=== PATIENT | female | born 1950 | race Caucasian/White ===

== ENCOUNTER 2017-01-11 21:20 | Inpatient (IN) | payer MEDICAID, OTHER ==
[~2017-01-11] VITALS: Ht 152.4 cm; Wt 57.6 kg
[~2017-01-11 21:20] MED LIST: ASPI-1035 PO; ATOR20TA65 PO; CARV6.2548 PO; DILT240C92 PO; DOCU-150 PO
[2017-01-11] MEDS ORDERED: ONDANSETRON HCL 4MG/2ML VIAL IV STA (23:03)
[2017-01-11] MEDS ORDERED: MORPHINE SULFATE 4 MG/ML CPJ (NOT FOR IM USE) IV STA (23:03)
[2017-01-11] MEDS ORDERED: SODIUM CHLORIDE 0.9% 1,000 ML IV ONE (23:03)
[2017-01-11 23:31] LABS: BASOPHILS % 0.7 % (0.0-2.0); EOSINOPHILS % 1.3 % (0.0-5.0); HEMATOCRIT. 25.6 % (36.0-48.0); HEMOGLOBIN. 8.9 g/dL (12.0-16.0); LYMPHOCYTES % 15.8 % (20.0-50.0); MEAN CORPUSCULAR HEMOGLOBIN 32.3 pg (28.0-32.0); MEAN CORPUSCULAR VOLUME 92.5 fL (81.0-99.0); MEAN PLATELET VOLUME 9.9 fl (7.4-10.4); MONOCYTES % 0.9 % (2.0-8.0); NEUTROPHILS % 81.3 % (40.0-76.0); PLATELET 60 x1000/uL (130-400); RED BLOOD CELL COUNT 2.77 mill/uL (4.2-5.4); RED CELL DISTRIBUTION WIDTH 13.9 % (11.6-14.6)
[2017-01-11 23:36] LABS: INR 1.1; PARTIAL THROMBOPLASTIN TIME 29.7 sec (24.0-34.0)
[2017-01-11 23:44] LABS: CARBON DIOXIDE 17 mEq/L (21-32); CHLORIDE 112 mEq/L (98-107); TROPONIN I < 0.02 ng/mL (0.00-0.04)
[2017-01-12] VITALS (9 sets, daily range): BP systolic 117–153; BP diastolic 53–84
[2017-01-12] MEDS ORDERED: DIPHENHYDRAMINE 50MG/ML VIAL IV ONE (00:15)
[2017-01-12] MEDS ORDERED: CARVEDILOL 6.25 MG TABLET PO SCH (09:00)
[2017-01-12] MEDS ORDERED: DILTIAZEM HCL 180MG CAPSULE CD 24HR PO SCH (09:00)
[2017-01-12] MEDS: DOCUSATE SODIUM 100MG CAPSULE PO SCH (09:54)
[2017-01-12] MEDS: SODIUM CHLORIDE 0.45% 1,000 ML IV SCH (12:36)
[2017-01-12] MEDS ORDERED: DEXTROSE 50% WATER 50ML SYRINGE IV PRN (13:30)
[2017-01-12] MEDS ORDERED: METRONIDAZOLE 500MG TABLET PO SCH (14:00)
[2017-01-12] MEDS: METRONIDAZOLE 250MG TABLET PO SCH ×2 (14:17→22:16)
[2017-01-12] MEDS: PANTOPRAZOLE SODIUM 40 MG/VIAL IV SCH (14:17)
[2017-01-12] MEDS ORDERED: LEVOFLOXACIN 500MG PREMIX 100 ML IV SCH (15:00)
[2017-01-12 15:14] LABS: CREATINE KINASE 44 IU/L (26-192); CREATINE KINASE MB FRACTION 3.1 ng/mL (0.5-3.6); TROPONIN I < 0.02 ng/mL (0.00-0.04)
[2017-01-12 16:48] LABS: CLARITY URINE CLEAR (CLEAR); COLOR URINE YELLOW (YELLOW); GLUCOSE URINE NEGATIVE (NEGATIVE); KETONES URINE NEGATIVE (NEGATIVE); LEUKOCYTE ESTERASE URINE TRACE (NEGATIVE); NITRITE URINE NEGATIVE (NEGATIVE); OCCULT BLOOD URINE 2+ (NEGATIVE); PROTEIN URINE 2+ (NEGATIVE); SPECIFIC GRAVITY URINE 1.015 (1.005-1.030); UROBILINOGEN URINE 0.2 E.U./dL (0.2-1.0)
[2017-01-12 17:04] LABS: *AMPHETAMINES SCREEN URINE NEGATIVE (NEGATIVE); *BARBITURATES SCREEN URINE NEGATIVE (NEGATIVE); *BENZODIAZEPINES SCREEN URINE NEGATIVE (NEGATIVE); *COCAINE SCREEN URINE NEGATIVE (NEGATIVE); CANNABINOID URINE SCREEN NEGATIVE (NEGATIVE); OPIATES URINE SCREEN PRESUMTIVE POSITIVE (NEGATIVE); PHENCYCLIDINE URINE SCREEN NEGATIVE (NEGATIVE)
[2017-01-12 17:05] LABS: CREATININE URINE RANDOM 65.2 mg/dL
[2017-01-12 17:09] LABS: METHADONE URINE SCREEN PRESUMTIVE POSITIVE (NEGATIVE)
[2017-01-12] MEDS: BLOOD SUGAR DIAGNOSTIC STRIP TEST SCH ×2 (17:30→21:30)
[2017-01-12] MEDS: INSULIN LISPRO 100 UNITS/ML SUBCUT SCH ×2 (18:00→21:00)
[2017-01-12 18:01] LABS: HEMOGLOBIN 8.6 g/dL (12.0-16.0)
[2017-01-12] MEDS ORDERED: ACETAMINOPHEN 650MG/20.3ML UDC PO PRN (19:45)
[2017-01-12] MEDS: ATORVASTATIN CALCIUM 20MG TABLET PO SCH (20:14)
[2017-01-13] VITALS (17 sets, daily range): BP systolic 127–173; BP diastolic 55–96
[2017-01-13 00:33] LABS: HEMATOCRIT 24.3 % (36.0-48.0); HEMOGLOBIN 8.2 g/dL (12.0-16.0)
[2017-01-13 00:33] LABS: CREATINE KINASE 38 IU/L (26-192); CREATINE KINASE MB FRACTION 2.1 ng/mL (0.5-3.6); TROPONIN I < 0.02 ng/mL (0.00-0.04)
[2017-01-13] MEDS: SODIUM CHLORIDE 0.45% 1,000 ML IV SCH ×2 (02:21→14:55)
[2017-01-13] MEDS: METRONIDAZOLE 250MG TABLET PO SCH ×3 (06:28→21:26)
[2017-01-13 07:11] LABS: BASOPHILS % 0.4 % (0.0-2.0); EOSINOPHILS % 1.7 % (0.0-5.0); HEMATOCRIT. 23.2 % (36.0-48.0); HEMOGLOBIN. 7.8 g/dL (12.0-16.0); LYMPHOCYTES % 19.5 % (20.0-50.0); MEAN CORPUSCULAR HEMOGLOBIN 31.4 pg (28.0-32.0); MEAN CORPUSCULAR VOLUME 92.7 fL (81.0-99.0); MEAN PLATELET VOLUME 10.1 fl (7.4-10.4); MONOCYTES % 8.1 % (2.0-8.0); NEUTROPHILS % 70.3 % (40.0-76.0); PLATELET 63 x1000/uL (130-400); RED CELL DISTRIBUTION WIDTH 13.8 % (11.6-14.6)
[2017-01-13 07:30] LABS: CARBON DIOXIDE 17 mEq/L (21-32); CHLORIDE 111 mEq/L (98-107); CREATINE KINASE 33 IU/L (26-192); CREATINE KINASE MB FRACTION 1.9 ng/mL (0.5-3.6); PHOSPHORUS 4.3 mg/dL (2.5-4.9); TROPONIN I < 0.02 ng/mL (0.00-0.04)
[2017-01-13] MEDS: BLOOD SUGAR DIAGNOSTIC STRIP TEST SCH ×4 (07:55→21:27)
[2017-01-13] MEDS: INSULIN LISPRO 100 UNITS/ML SUBCUT SCH ×4 (07:55→21:00)
[2017-01-13] MEDS: PANTOPRAZOLE SODIUM 40 MG/VIAL IV SCH (11:25)
[2017-01-13] MEDS: DOCUSATE SODIUM 100MG CAPSULE PO SCH (11:26)
[2017-01-13] MEDS: METHADONE HCL 10MG TABLET PO SCH (11:27)
[2017-01-13] MEDS: ONDANSETRON HCL 4MG/2ML VIAL IV PRN (17:08)
[2017-01-13] MEDS: ENALAPRIL 2.5MG/2ML VIAL 2ML IV PRN ×2 (17:08→23:07)
[2017-01-13] MEDS: ATORVASTATIN CALCIUM 20MG TABLET PO SCH (21:26)
[2017-01-14] VITALS (13 sets, daily range): BP systolic 100–202; BP diastolic 52–91
[2017-01-14] MEDS: ONDANSETRON HCL 4MG/2ML VIAL IV PRN ×2 (02:24→08:21)
[2017-01-14] MEDS: SODIUM CHLORIDE 0.45% 1,000 ML IV SCH (02:25)
[2017-01-14] MEDS: METRONIDAZOLE 250MG TABLET PO SCH ×3 (06:14→22:23)
[2017-01-14 06:43] LABS: BASOPHILS % 0.4 % (0.0-2.0); EOSINOPHILS % 1.7 % (0.0-5.0); HEMATOCRIT. 29.2 % (36.0-48.0); HEMOGLOBIN. 10.1 g/dL (12.0-16.0); LYMPHOCYTES % 20.3 % (20.0-50.0); MEAN CORPUSCULAR VOLUME 89.6 fL (81.0-99.0); MEAN PLATELET VOLUME 10.2 fl (7.4-10.4); MONOCYTES % 9.1 % (2.0-8.0); NEUTROPHILS % 68.5 % (40.0-76.0); PLATELET 59 x1000/uL (130-400); RED BLOOD CELL COUNT 3.26 mill/uL (4.2-5.4); RED CELL DISTRIBUTION WIDTH 14.8 % (11.6-14.6)
[2017-01-14 07:29] LABS: CARBON DIOXIDE 18 mEq/L (21-32); CHLORIDE 113 mEq/L (98-107); PHOSPHORUS 3.5 mg/dL (2.5-4.9)
[2017-01-14] MEDS: BLOOD SUGAR DIAGNOSTIC STRIP TEST SCH ×4 (07:30→20:51)
[2017-01-14] MEDS: INSULIN LISPRO 100 UNITS/ML SUBCUT SCH ×4 (08:00→21:00)
[2017-01-14] MEDS: ENALAPRIL 2.5MG/2ML VIAL 2ML IV PRN (08:08)
[2017-01-14] MEDS: PANTOPRAZOLE SODIUM 40 MG/VIAL IV SCH (08:21)
[2017-01-14] MEDS: DOCUSATE SODIUM 100MG CAPSULE PO SCH (08:22)
[2017-01-14] MEDS: METHADONE HCL 10MG TABLET PO SCH (08:24)
[2017-01-14] MEDS ORDERED: DILTIAZEM HCL 180MG CAPSULE CD 24HR PO SCH (09:15)
[2017-01-14] MEDS: CARVEDILOL 6.25 MG TABLET PO SCH ×2 (09:38→20:50)
[2017-01-14] MEDS ORDERED: METOCLOPRAMIDE HCL 10MG/2ML VIAL IV NR (09:45)
[2017-01-14] MEDS: METOCLOPRAMIDE HCL 10MG/2ML VIAL IV SCH ×3 (12:53→23:16)
[2017-01-14] MEDS: DEXT 5%/0.45% NACL 1000ML 1,000 ML IV SCH ×2 (12:55)
[2017-01-14] MEDS: DILTIAZEM HCL 60MG TABLET PO SCH ×2 (16:51→21:19)
[2017-01-14] MEDS: LEVOFLOXACIN 250MG PREMIX 50 ML IV SCH (16:51)
[2017-01-14] MEDS: ATORVASTATIN CALCIUM 20MG TABLET PO SCH (21:00)
[2017-01-15] VITALS (12 sets, daily range): BP systolic 99–151; BP diastolic 47–66
[2017-01-15] MEDS: DEXT 5%/0.45% NACL 1000ML 1,000 ML IV SCH ×4 (03:03→15:01)
[2017-01-15] MEDS: METRONIDAZOLE 250MG TABLET PO SCH ×3 (05:47→21:37)
[2017-01-15] MEDS: METOCLOPRAMIDE HCL 10MG/2ML VIAL IV SCH ×4 (05:47→23:34)
[2017-01-15] MEDS: DILTIAZEM HCL 60MG TABLET PO SCH ×3 (05:47→21:39)
[2017-01-15 06:21] LABS: BASOPHILS % 0.5 % (0.0-2.0); EOSINOPHILS % 2.1 % (0.0-5.0); HEMATOCRIT. 27.4 % (36.0-48.0); HEMOGLOBIN. 9.4 g/dL (12.0-16.0); LYMPHOCYTES % 20.7 % (20.0-50.0); MEAN CORPUSCULAR VOLUME 90.1 fL (81.0-99.0); MEAN PLATELET VOLUME 10.2 fl (7.4-10.4); MONOCYTES % 10.3 % (2.0-8.0); NEUTROPHILS % 66.4 % (40.0-76.0); PLATELET 62 x1000/uL (130-400); RED BLOOD CELL COUNT 3.04 mill/uL (4.2-5.4); RED CELL DISTRIBUTION WIDTH 14.3 % (11.6-14.6)
[2017-01-15 07:08] LABS: CARBON DIOXIDE 17 mEq/L (21-32); CHLORIDE 111 mEq/L (98-107)
[2017-01-15] MEDS: INSULIN LISPRO 100 UNITS/ML SUBCUT SCH ×5 (08:00→21:38)
[2017-01-15] MEDS: BLOOD SUGAR DIAGNOSTIC STRIP TEST SCH ×4 (08:28→21:38)
[2017-01-15] MEDS: PANTOPRAZOLE SODIUM 40 MG/VIAL IV SCH (08:40)
[2017-01-15] MEDS: METHADONE HCL 10MG TABLET PO SCH (08:40)
[2017-01-15] MEDS: CARVEDILOL 6.25 MG TABLET PO SCH ×2 (08:41→21:00)
[2017-01-15] MEDS: DOCUSATE SODIUM 100MG CAPSULE PO SCH (08:41)
[2017-01-15 10:09] LABS: BG BASE EXCESS -9.5 mmol/L (-2.0-2.0); BG CARBOXYHEMOGLOBIN 0.3 % (0.5-1.5); BG DEOXYHEMOGLOBIN 2.6 % (0.0-5.0); BG FRACTION INSPIRED OXYGEN 21; BG HCO3 ACT 15.2 mmol/L (22.0-26.0); BG METHEMOGLOBIN 0.1 % (0.0-1.5); BG OXYGEN SATURATION 97.4 % (92.0-98.5); BG PH 7.336 (7.350-7.450); BG PO2 107.7 mmHg (75.0-100.0); BG SAMPLE SITE RIGHT RADIAL; BG VENT MODE ROOM AIR
[2017-01-15] MEDS ORDERED: SENNOSIDES/DOCUSATE SOD 8.6/50MG TABLET PO NR (11:01)
[2017-01-15] MEDS: ONDANSETRON HCL 4MG/2ML VIAL IV PRN (12:08)
[2017-01-15] MEDS ORDERED: SENNOSIDES/DOCUSATE SOD 8.6/50MG TABLET PO PRN (21:00)
[2017-01-15] MEDS: ATORVASTATIN CALCIUM 20MG TABLET PO SCH (21:37)
[2017-01-15 21:46] LABS: CLARITY URINE CLOUDY (CLEAR); COLOR URINE YELLOW (YELLOW); GLUCOSE URINE NEGATIVE (NEGATIVE); KETONES URINE NEGATIVE (NEGATIVE); LEUKOCYTE ESTERASE URINE 2+ (NEGATIVE); NITRITE URINE NEGATIVE (NEGATIVE); OCCULT BLOOD URINE TRACE (NEGATIVE); PROTEIN URINE 2+ (NEGATIVE); SPECIFIC GRAVITY URINE 1.014 (1.005-1.030); UROBILINOGEN URINE 0.2 E.U./dL (0.2-1.0)
[2017-01-15 21:57] LABS: CREATININE URINE RANDOM 59.3 mg/dL
[2017-01-16] VITALS (17 sets, daily range): BP systolic 96–159; BP diastolic 48–77
[2017-01-16] MEDS: DEXT 5%/0.45% NACL 1000ML 1,000 ML IV SCH ×2 (03:30)
[2017-01-16] MEDS: METOCLOPRAMIDE HCL 10MG/2ML VIAL IV SCH ×4 (05:10→23:47)
[2017-01-16] MEDS: METRONIDAZOLE 250MG TABLET PO SCH ×3 (05:10→21:24)
[2017-01-16] MEDS: DILTIAZEM HCL 60MG TABLET PO SCH ×3 (05:10→21:24)
[2017-01-16 06:39] LABS: BASOPHILS % 0.4 % (0.0-2.0); EOSINOPHILS % 2.3 % (0.0-5.0); HEMATOCRIT. 27.7 % (36.0-48.0); HEMOGLOBIN. 9.4 g/dL (12.0-16.0); LYMPHOCYTES % 28.8 % (20.0-50.0); MEAN CORPUSCULAR HEMOGLOBIN 30.8 pg (28.0-32.0); MEAN CORPUSCULAR VOLUME 90.5 fL (81.0-99.0); MEAN PLATELET VOLUME 10.4 fl (7.4-10.4); MONOCYTES % 12.9 % (2.0-8.0); NEUTROPHILS % 55.6 % (40.0-76.0); PLATELET 72 x1000/uL (130-400); RED BLOOD CELL COUNT 3.06 mill/uL (4.2-5.4); RED CELL DISTRIBUTION WIDTH 14.5 % (11.6-14.6)
[2017-01-16 07:10] LABS: CHLORIDE 112 mEq/L (98-107)
[2017-01-16] MEDS: BLOOD SUGAR DIAGNOSTIC STRIP TEST SCH ×4 (07:30→21:15)
[2017-01-16 07:45] LABS: CARBON DIOXIDE 15 mEq/L (21-32)
[2017-01-16] MEDS: INSULIN LISPRO 100 UNITS/ML SUBCUT SCH ×4 (08:00→21:00)
[2017-01-16] MEDS: PANTOPRAZOLE SODIUM 40 MG/VIAL IV SCH (08:11)
[2017-01-16] MEDS: DOCUSATE SODIUM 100MG CAPSULE PO SCH (08:13)
[2017-01-16] MEDS: METHADONE HCL 10MG TABLET PO SCH (08:13)
[2017-01-16] MEDS: CARVEDILOL 6.25 MG TABLET PO SCH ×2 (08:14→21:24)
[2017-01-16] MEDS: ONDANSETRON HCL 4MG/2ML VIAL IV PRN ×2 (08:20→21:31)
[2017-01-16] MEDS: SODIUM BICARBONATE 100 MEQ in DEXTROSE 5% WATER 1,000 ML IV SCH (14:18)
[2017-01-16] MEDS: LEVOFLOXACIN 250MG PREMIX 50 ML IV SCH (15:34)
[2017-01-16] MEDS: ATORVASTATIN CALCIUM 20MG TABLET PO SCH (21:23)
[2017-01-17] VITALS (10 sets, daily range): BP systolic 119–164; BP diastolic 60–77
[2017-01-17] MEDS: DILTIAZEM HCL 60MG TABLET PO SCH ×3 (05:07→22:57)
[2017-01-17] MEDS: METRONIDAZOLE 250MG TABLET PO SCH ×3 (05:07→22:56)
[2017-01-17] MEDS: SODIUM BICARBONATE 100 MEQ in DEXTROSE 5% WATER 1,000 ML IV SCH ×2 (05:07→18:23)
[2017-01-17] MEDS: METOCLOPRAMIDE HCL 10MG/2ML VIAL IV SCH ×4 (05:07→22:58)
[2017-01-17] MEDS: ONDANSETRON HCL 4MG/2ML VIAL IV PRN (05:12)
[2017-01-17 07:51] LABS: BASOPHILS % 0.6 % (0.0-2.0); EOSINOPHILS % 2.4 % (0.0-5.0); HEMATOCRIT. 26.5 % (36.0-48.0); HEMOGLOBIN. 9.3 g/dL (12.0-16.0); MEAN CORPUSCULAR HEMOGLOBIN 31.3 pg (28.0-32.0); MEAN CORPUSCULAR VOLUME 89.5 fL (81.0-99.0); MEAN PLATELET VOLUME 9.4 fl (7.4-10.4); MONOCYTES % 11.5 % (2.0-8.0); NEUTROPHILS % 61.5 % (40.0-76.0); PLATELET 76 x1000/uL (130-400); RED BLOOD CELL COUNT 2.97 mill/uL (4.2-5.4); RED CELL DISTRIBUTION WIDTH 14.4 % (11.6-14.6)
[2017-01-17] MEDS: INSULIN LISPRO 100 UNITS/ML SUBCUT SCH ×4 (08:00→21:00)
[2017-01-17] MEDS: BLOOD SUGAR DIAGNOSTIC STRIP TEST SCH ×4 (08:02→21:00)
[2017-01-17] MEDS: PANTOPRAZOLE SODIUM 40 MG/VIAL IV SCH (08:09)
[2017-01-17 08:19] LABS: CARBON DIOXIDE 19 mEq/L (21-32); CHLORIDE 108 mEq/L (98-107); PHOSPHORUS 3.1 mg/dL (2.5-4.9)
[2017-01-17] MEDS: CARVEDILOL 6.25 MG TABLET PO SCH ×2 (08:35→22:56)
[2017-01-17] MEDS: DOCUSATE SODIUM 100MG CAPSULE PO SCH (08:35)
[2017-01-17] MEDS: METHADONE HCL 10MG TABLET PO SCH (08:36)
[2017-01-17] MEDS ORDERED: CALCITRIOL 0.25MCG CAPSULE PO SCH (12:45)
[2017-01-17] MEDS: CALCITRIOL 1MCG/ML AMP IV SCH (14:10)
[2017-01-17] MEDS ORDERED: ENALAPRIL 2.5MG/2ML VIAL 2ML IV PRN (18:04)
[2017-01-17] MEDS: ATORVASTATIN CALCIUM 20MG TABLET PO SCH (22:56)
[2017-01-18] VITALS: BP 168/83
[2017-01-18 02:00] VITALS: BP 121/66
[2017-01-18] MEDS: ONDANSETRON HCL 4MG/2ML VIAL IV PRN (03:41)
[2017-01-18 04:00] VITALS: BP 150/77
[2017-01-18] MEDS: METOCLOPRAMIDE HCL 10MG/2ML VIAL IV SCH (06:31)
[2017-01-18] MEDS: METRONIDAZOLE 250MG TABLET PO SCH (06:31)
[2017-01-18] MEDS: DILTIAZEM HCL 60MG TABLET PO SCH (06:31)
[2017-01-18 07:19] LABS: BASOPHILS % 0.4 % (0.0-2.0); EOSINOPHILS % 2.9 % (0.0-5.0); HEMATOCRIT. 27.9 % (36.0-48.0); HEMOGLOBIN. 9.5 g/dL (12.0-16.0); LYMPHOCYTES % 23.2 % (20.0-50.0); MEAN CORPUSCULAR HEMOGLOBIN 30.7 pg (28.0-32.0); MEAN CORPUSCULAR VOLUME 89.7 fL (81.0-99.0); MEAN PLATELET VOLUME 9.5 fl (7.4-10.4); MONOCYTES % 10.5 % (2.0-8.0); PLATELET 85 x1000/uL (130-400); RED BLOOD CELL COUNT 3.11 mill/uL (4.2-5.4); RED CELL DISTRIBUTION WIDTH 14.3 % (11.6-14.6)
[2017-01-18 07:31] LABS: PHOSPHORUS 2.9 mg/dL (2.5-4.9)
[2017-01-18 08:00] VITALS: BP 145/70
[2017-01-18] MEDS: INSULIN LISPRO 100 UNITS/ML SUBCUT SCH (08:00)
[2017-01-18] MEDS: BLOOD SUGAR DIAGNOSTIC STRIP TEST SCH (08:04)
[2017-01-18] MEDS: CALCITRIOL 1MCG/ML AMP IV SCH (08:06)
[2017-01-18] MEDS: PANTOPRAZOLE SODIUM 40 MG/VIAL IV SCH (08:06)
[2017-01-18] MEDS: METHADONE HCL 10MG TABLET PO SCH (08:07)
[2017-01-18] MEDS: DOCUSATE SODIUM 100MG CAPSULE PO SCH (08:07)
[2017-01-18] MEDS: CARVEDILOL 6.25 MG TABLET PO SCH (08:08)
[2017-01-18] MEDS ORDERED: METO-293 PO (09:54)
[2017-01-18] MEDS: SODIUM BICARBONATE 100 MEQ in DEXTROSE 5% WATER 1,000 ML IV SCH (10:15)
[2017-01-18 10:51] VITALS: BP 145/80
[2017-01-18] MEDS ORDERED: LEVOFLOXACIN 250MG TABLET PO SCH (11:00)
[2017-01-22 19:12] LABS: 25-HYDROXY VITAMIN D3 5.8 ng/mL (.)
== END 2017-01-18 15:00 | disposition home or self-care (01) | DRG 45 ==
LOC: ER 21:20 → 5EST 01-12 02:22 → 8WST 01-14 18:37 → 5EST 01-14 22:08
PROVIDERS: ADMIT Internal Medicine; ATTEND Internal Medicine
PROC: 30233N1 Transfusion of Nonautologous Red Blood Cells into Peripheral Vein, Percutaneous Approach (ICD-10-PCS; principal; 2017-01-13)
DX: I63.9 Cerebral infarction, unspecified (principal); N17.9 Acute kidney failure, unspecified; E87.2 Acidosis; K85.90 Acute pancreatitis without necrosis or infection, unspecified; E46 Unspecified protein-calorie malnutrition; N18.4 Chronic kidney disease, stage 4 (severe); D69.6 Thrombocytopenia, unspecified; E11.22 Type 2 diabetes mellitus with diabetic chronic kidney disease; I27.2 Other secondary pulmonary hypertension; E87.5 Hyperkalemia; K80.70 Calculus of gallbladder and bile duct without cholecystitis without obstruction; R74.0 Nonspecific elevation of levels of transaminase and lactic acid dehydrogenase [LDH]; D64.9 Anemia, unspecified; K52.9 Noninfective gastroenteritis and colitis, unspecified; B19.20 Unspecified viral hepatitis C without hepatic coma; E78.00 Pure hypercholesterolemia, unspecified; E78.5 Hyperlipidemia, unspecified; F11.23 Opioid dependence with withdrawal; F17.210 Nicotine dependence, cigarettes, uncomplicated; I07.1 Rheumatic tricuspid insufficiency; I12.9 Hypertensive chronic kidney disease with stage 1 through stage 4 chronic kidney disease, or unspecified chronic kidney disease; I44.0 Atrioventricular block, first degree; M47.9 Spondylosis, unspecified; I45.81 Long QT syndrome; N28.1 Cyst of kidney, acquired; I95.9 Hypotension, unspecified; K92.2 Gastrointestinal hemorrhage, unspecified; Y90.0 Blood alcohol level of less than 20 mg/100 ml; K92.1 Melena; Z82.49 Family history of ischemic heart disease and other diseases of the circulatory system; Z86.73 Personal history of transient ischemic attack (TIA), and cerebral infarction without residual deficits; Z88.6 Allergy status to analgesic agent; Z68.24 Body mass index [BMI] 24.0-24.9, adult
CPT/HCPCS: 36415; 36600; 70450; 70551; 71010; 72125; 74176; 74181; 76705; 80048; 80053; 80305; 81001; 82306; 82330; 82375; 82550; 82553; 82570; 82805; 82962; 83690; 83735; 83970; 84100; 84156; 84300; 84484; 85014; 85018; 85025; 85610; 85730; 86850; 86900; 86920; 93005; 93306; 93880; 96361; 96374; 96375; 97162; 97166; 97530; 99285; A6261; C9113; G0482; J0636; J1200; J1815; J1956; J2270; J2405; J2765; J3490; J7030; J7050; J7070; P9016; A4315